=== PATIENT | female | born 1975 ===

== ENCOUNTER 2017-10-08 19:45 | Emergency (ER) | payer OTHER ==
[2017-10-08 20:13] VITALS: RESP 20; TEMP 98
[2017-10-08] MEDS ORDERED: Sodium Chloride 0.9% 1,000 ML IV ONE (20:31)
[2017-10-08 21:12] LABS: BASO # 0.1 K/uL (0.0-0.2); BASO % 1.1 % (0.0-2.0); EOS # 0.9 K/uL (0.0-0.7); EOS % 14.4 % (0.0-4.0); HEMOGLOBIN 13.2 g/dL (11.0-16.0); LYMPH # 2.5 K/uL (1.0-4.3); LYMPH % 41.3 % (20.0-40.0); MEAN CELL VOLUME 86.2 fL (81.0-99.0); MEAN CORPUSCULAR HEMOGLOBIN 28.9 pg (27.0-31.0); MEAN CORPUSCULAR HGB CONC 33.5 g/dL (33.0-37.0); MEAN PLATELET VOLUME 7.7 fL (7.2-11.7); MONO # 0.6 K/uL (0.0-0.8); MONO % 9.1 % (0.0-10.0); NEUT # 2.1 K/uL (1.8-7.0); NEUT % 34.1 % (50.0-75.0); NRBC % 0.1 % (0.0-2.0); RBC 4.58 Mil/uL (3.80-5.20); RED CELL DISTRIBUTION WIDTH 13.1 % (11.5-14.5); WHITE BLOOD COUNT 6.1 K/uL (4.8-10.8)
[2017-10-08 21:20] LABS: PROTHROMBIN TIME 10.9 SECONDS (9.7-12.2)
[2017-10-08 21:22] LABS: ALB/GLOB RATIO 1.1 (1.0-2.1); ALT/SGPT 9 U/L (9-52); AST/SGOT 20 U/L (14-36); BLOOD UREA NITROGEN 14 mg/dL (7-17); GFR AFRICAN-AMERICAN > 60; GFR NON-AFRICAN AMERICAN 54
--- NOTE | 2017-10-08 21:56 | C.PDOC ---
History Of Present Illness 42 yo female w/PMHx of HTN, seasonal allergy, denies hx of asthma. come in for evaluation of cold sx for past 2 weeks associated with sore throat, dry cough. Pt sts, was seen by PMD 1 week ago and given Rx: Singular, " Abx for 4 days" without improvement. Pts ts, for past few days, developed more throat swelling, post-nasal drip, chest tightness described as " burning sensation worse with lying down". Otherwise, pt denies high fever, chills, headache, dizziness, drooling, dysphagia, dyspnea, CP, SOB, wheezing, palpitation, diaphoresis, abd. pain, V/D, back pain, UTI sx. Ambulate to Ed for evaluation, not in any apparent distress. Time Seen by Provider: 10/08/17 20:22 Chief Complaint (Nursing): Cough, Cold, Congestion History Per: Patient Past Medical History Reviewed: Historical Data, Nursing Documentation, Vital Signs Vital Signs: Last Vital Signs Temp 98.0 F 10/08/17 20:09 Pulse 72 10/08/17 23:25 Resp 20 10/08/17 23:25 BP 118/70 10/08/17 23:25 Pulse Ox 98 10/08/17 23:25 - Medical History PMH: HTN Family History: States: Unknown Family Hx - Social History Hx Tobacco Use: No Hx Alcohol Use: Yes Hx Substance Use: No Review Of Systems Except As Marked, All Systems Reviewed And Found Negative. Constitutional: Negative for: Fever, Chills ENT: Positive for: Nose Discharge, Nose Congestion, Throat Pain, Throat Swelling. Negative for: Ear Pain, Ear Discharge Cardiovascular: Positive for: Other ("chest burning"). Negative for: Chest Pain , Palpitations, Orthopnea, Paroxysmal Noc. Dyspnea, Edema, Light Headedness Respiratory: Positive for: Cough. Negative for: Shortness of Breath, Wheezing Gastrointestinal: Negative for: Nausea, Vomiting, Abdominal Pain, Diarrhea Genitourinary: Negative for: Dysuria Musculoskeletal: Negative for: Neck Pain, Back Pain Skin: Negative for: Rash Neurological: Negative for: Weakness, Numbness, Altered Mental Status, Headache , Dizziness Physical Exam - Physical Exam Appears: Well, Non-toxic, No Acute Distress Skin: Normal Color, Warm, Dry, No Rash Eye(s): bilateral: PERRL Nose: No Flaring, Discharge (B/l nasal congestion ) Oral Mucosa: Moist, No Drooling Throat: Erythema (mild b/L), No Exudate, No Drooling Neck: Trachea Midline, Supple Cardiovascular: Rhythm Regular, No Murmur, No JVD, Other ((-) carotid bruits b/l ) Respiratory: No Decreased Breath Sounds, No Accessory Muscle Use, No Stridor, No Wheezing Gastrointestinal/Abdominal: Soft, No Tenderness, No Distention, No Guarding Back: No CVA Tenderness Extremity: Normal ROM, No Pedal Edema, No Deformity Neurological/Psych: Oriented x3, Normal Speech, Normal Motor, Normal Sensation, Normal Reflexes ED Course And Treatment - Laboratory Results Result Diagrams: 10/08/17 21:08 10/08/17 21:08 Lab Interpretation: Normal Urine POC: Negative ECG: Interpreted By Me, Viewed By Me ECG Rhythm: Sinus Rhythm ECG Interpretation: Normal, No Changes From Prior (08/31/16) Interpretation Of ECG: SR@62/min, NAD, no acute T wave or ST-T changes. O2 Sat by Pulse Oximetry: 100 Pulse Ox Interpretation: Normal - Radiology CXR: Interpreted by Me, Viewed By Me CXR Interpretation: Yes: No Acute Disease Progress Note: Pt was OBS in ED for 2 hours and reports improveemnt in sx. On re-evaluation, pt is afebrile, hemodynamicaly stable. Non-toxic. PusleOx 100% RA. Neck: SUpple, (-) meningeal sign, (-) JVD, (-) carotid bruits B/L. ENT: mild pharyngeal erythema B/L, no edema. uvual midline, no edema. no drooling, no trismus. CVS: (+)S1S2, reg. Lungs: CTA B/L, BS equal B/L. Neurologicaly intact. Blood work review, no acute abnoramlities. troponin (-). EKG, CXR- normal study, no changes compare to previous studies. Pt has clinical findings c/w URI r/o seasonal allergy. Advised on course of ds. ref. to f/u with PMD in 1-2 days for re-eval. Return to ED at any time if any worsening or new changes. Disposition Counseled Patient/Family Regarding: Studies Performed, Diagnosis, Need For Followup - Disposition Referrals: Stefanie Moscoso MD [Staff Provider] - Disposition: HOME/ ROUTINE Disposition Time: 21:51 Condition: STABLE Additional Instructions: Encourage fluids Take medication as prescribed Follow up with PMD in 1-2 days for re-evaluation. Return to ED if any worsening or new changes. Prescriptions: Albuterol HFA [Ventolin HFA 90 mcg/actuation (8 g)] 1 puff IH Q6 #1 inhaler Loratadine/Pseudoephedrine [Loratadine-D 12 Hour Tablet] 1 each PO DAILY #10 tab.er.12h Prednisone [Deltasone] 40 mg PO DAILY #6 tablet Instructions: Seasonal Allergies in Adults, Upper Respiratory Infection (ED) Forms: [facility] (Norwegian), Work Excuse - Clinical Impression Clinical Impression: Upper respiratory infection, Seasonal allergies
[2017-10-08] MEDS ORDERED: Albuterol 0.083% Inhal Sol (2.5 mg/3 mL) UD IH STA (22:08)
[2017-10-08] MEDS ORDERED: Albuterol 0.083% Inhal Sol (2.5 mg/3 mL) UD ONE (22:15)
[2017-10-08] MEDS ORDERED: MethylPREDNISolone 40 mg Vial ONE (22:15)
[2017-10-08 23:26] VITALS: BP 118/70; PULSE 72
--- NOTE | 2017-10-09 09:37 | RAD ---
Chest x-ray two views History: Chest pain. Comparison: 08/31/2016 Findings: Mild venous congestion. Tortuous aorta. Heart size within normal limits. Degenerative changes in the spine and shoulders. Distended loops of bowel seen within the left upper abdomen. Impression: Mild venous congestion. Tortuous aorta.
--- NOTE | 2017-10-09 11:57 | CARD ---
APPROVED REPORT EKG Measurement Heart [id number] <Conclusion> Normal sinus rhythm Possible Anterior infarct, age undetermined Abnormal ECG
[2017-10-10 02:02] VITALS: O2SAT 100
== END 2017-10-08 23:25 | disposition home or self-care (01) ==
LOC: C.ER 19:45
DX: J06.9 Acute upper respiratory infection, unspecified (principal); J30.2 Other seasonal allergic rhinitis
CPT/HCPCS: 71046; 80053; 84484; 85025; 85610; 85730; 93005; 94640; 96361; 96374; 96375; 99284; J1885; J2930; J7040